=== PATIENT | female | born 1965 | race Caucasian/White ===

== ENCOUNTER 2021-11-25 06:53 | Day surgery (SDC) | payer BC ==
[~2021-11-25] VITALS: Ht 165.1 cm; Wt 95.7 kg
[~2021-11-25 06:53] MED LIST: FURO1TAB31 PO; METO25TA93 PO; PANT40T PO; POTA-180 PO
[2021-11-25] MEDS ORDERED: diphenhdrAMINE HCL 50 MG/1 ML VL IV ONE (08:15)
[2021-11-25] MEDS ORDERED: fentaNYL CITRATE 100 MCG/2 ML VL IV ONE (08:15)
[2021-11-25] MEDS ORDERED: LIDOCAINE VISCOUS 2% 15ML UD PO ONE (08:15)
[2021-11-25] MEDS ORDERED: MIDAZOLAM HCL 5 MG/ML-1ML VIAL IV ONE (08:15)
[2021-11-25] MEDS ORDERED: LIDOCAINE VISCOUS 2% 15ML UD ONE (08:27)
[2021-11-25] MEDS ORDERED: MIDAZOLAM HCL 2MG/2ML 2ml VIAL (1mg/ml) ONE (08:29)
[2021-11-25 08:54] VITALS: BP 132/86
== END 2021-11-25 09:54 | disposition home or self-care (01) ==
LOC: CATH 06:53
PROVIDERS: ATTEND Internal Medicine Cardiovascular Disease
DX: I35.9 Nonrheumatic aortic valve disorder, unspecified (principal); I10 Essential (primary) hypertension; E11.9 Type 2 diabetes mellitus without complications; E78.5 Hyperlipidemia, unspecified; Z20.822 Contact with and (suspected) exposure to COVID-19
CPT/HCPCS: 93312; J2250; J3010; J7040; U0003; 99152

== ENCOUNTER 2021-12-02 07:05 | Day surgery (SDC) | payer BC ==
[~2021-12-02] VITALS: Ht 165.1 cm; Wt 95.7 kg
[2021-12-02] VITALS (8 sets, daily range): BP systolic 100–124; BP diastolic 56–78
[2021-12-02] MEDS ORDERED: LIDOCAINE 2%HCL (LOCAL ANESTH.) INJ 20ML MDV ONE (07:42)
[2021-12-02] MEDS ORDERED: IODIXANOL 320MG/ML 100ML BTL IV ONE (07:42)
[2021-12-02] MEDS ORDERED: fentaNYL CITRATE 100 MCG/2 ML VL ONE (07:47)
[2021-12-02] MEDS ORDERED: VERAPAMIL 2.5MG/ML INJ 2ML VIAL IV ONE (07:47)
[2021-12-02] MEDS ORDERED: HEPARIN SODIUM (PORCINE) 5000 UNITS/ML 1ML VIAL ONE (07:47)
[2021-12-02] MEDS ORDERED: ANGIOMAX 250 MG VIAL IV ONE (07:47)
[2021-12-02] MEDS ORDERED: MIDAZOLAM HCL 2MG/2ML 2ml VIAL (1mg/ml) ONE (07:48)
[2021-12-02] MEDS ORDERED: SODIUM CHL 0.9% 0 ML ONE (07:48)
== END 2021-12-02 11:22 | disposition home or self-care (01) ==
LOC: CATH 07:05
PROVIDERS: ATTEND Internal Medicine Cardiovascular Disease
DX: R94.39 Abnormal result of other cardiovascular function study (principal); I25.10 Atherosclerotic heart disease of native coronary artery without angina pectoris; I10 Essential (primary) hypertension; E11.9 Type 2 diabetes mellitus without complications; E78.5 Hyperlipidemia, unspecified; E66.01 Morbid (severe) obesity due to excess calories; Z20.822 Contact with and (suspected) exposure to COVID-19; Z68.35 Body mass index [BMI] 35.0-35.9, adult
CPT/HCPCS: 93460; C1751; C1769; C1887; C1894; J1644; J2250; J3010; J7030; Q9967; 93453; 99152; 99153

== ENCOUNTER 2023-02-19 08:09 | Day surgery (SDC) | payer BC ==
[2023-02-19] VITALS (10 sets, daily range): BP systolic 105–143; BP diastolic 54–82; PULSE 53–94; RESP 15–23; TEMP 98.2; O2SAT 95–99
[~2023-02-19] VITALS: Ht 30.5 cm; Wt 0.9 kg
[2023-02-19] MEDS ORDERED: fentaNYL CITRATE 100 MCG/2 ML VL IV ONE (08:30)
[2023-02-19] MEDS ORDERED: MIDAZOLAM HCL 2MG/2ML 2ml VIAL (1mg/ml) IV ONE (08:30)
[2023-02-19] MEDS ORDERED: LIDOCAINE VISCOUS 2% 15ML UD PO ONE (08:30)
[2023-02-19] MEDS ORDERED: PREG75CA PO (09:24)
== END 2023-02-19 11:32 | disposition home or self-care (01) ==
LOC: CATH 08:09
PROVIDERS: ATTEND Internal Medicine Cardiovascular Disease
DX: I08.1 Rheumatic disorders of both mitral and tricuspid valves (principal); E11.9 Type 2 diabetes mellitus without complications; E78.00 Pure hypercholesterolemia, unspecified; I10 Essential (primary) hypertension; E66.01 Morbid (severe) obesity due to excess calories; Z68.1 Body mass index [BMI] 19.9 or less, adult; Z79.899 Other long term (current) drug therapy; Z98.890 Other specified postprocedural states
CPT/HCPCS: 93312; J2250; J3010; 99152